=== PATIENT | male | born 1995 | race Two or more races ===

== ENCOUNTER 2024-09-15 15:40 | Emergency (ER) | payer SELFPAY ==
--- NOTE | ~2024-09-15 | CT_ITS ---
EXAMINATION: CT abdomen pelvis w con DATE: 09/15/2024 19:00 INDICATION: abdominal pain TECHNIQUE: Computed tomography (CT) of the abdomen and pelvis was performed with 100 mL Omnipaque-350 intravenous contrast. Automated exposure control and iterative reconstruction technique were employe d. The dose-length product was 571.29 mGy-cm. COMPARISON: None. FINDINGS: Lower thorax: Unremarkable Liver: Normal. Biliary/Gallbladder: Gallbladder is normal. No bile duct dilation. Pancreas: No mass or duct dilation. Spleen: Normal. Adrenals:No mass. Kidneys: No suspicious mass, obstructing stone, or hydronephrosis. GI tract: Mild distal esophageal and gastric wall edema. No small or large bowel dilation. Rounded fa t density adjacent to the mid sigmoid, with a thin hyperattenuating rim and mild surrounding strandin g. Normal appendix. Mesentery/Peritoneum: No ascites, mass, or free air. Retroperitoneum: No mass. Pelvis: Pelvic organs are within normal limits. Small focus of intramural urinary bladder wall fat ne ar a small urachal remnant. Soft Tissues: Small fat-containing, gated appearing inguinal hernia. Bones: No acute osseous finding. IMPRESSION: Mild esophagitis/gastritis. Epiploic appendagitis in the left lower quadrant. Reviewed, dictated and finalized at location K.
[2024-09-15 15:42] VITALS: BP 108/59; PULSE 86; RESP 16; TEMP 36.3; O2SAT 100
--- NOTE | 2024-09-15 15:48 | ECG_ITS ---
Test Date: 2024-09-15 15:54:01 Measurements Intervals [place] Rate: 82 P: 21 [place]: 148 QRS: 33 QRSD: 109 T: 11 QT: 361 QTc: 423 Interpretive Statements SINUS RHYTHM NORMAL ECG No previous ECG available for comparison Electronically Signed On 09-16-2024 09:57:01 CDT by Pop Oscar M.D.
--- NOTE | 2024-09-15 15:49 | ED_ITS ---
HPI - Abdominal Pain General Chief Complaint: Abdominal Pain <Nelly Barker APRN - Last Filed: 09/15/24 16:31> Stated Complaint: abd pain <Nellysona Barker APRN - Last Filed: 09/15/24 16:31> Time Seen by Provider: 09/15/24 15:50 <Nellysona Barker APRN - Last Filed: 09/15/24 16:31> Focused HPI: Patient is a 29-year-old male who presents to the ER with complaints of abdominal pain, nausea, and vomiting that started yesterday. He reports his abdominal pain is generalized but centers around his umbilicus. He denies any diarrhea. Patient reports his pain is a 10/10. He also endorses some urinary symptoms including burning with urination. Patient denies any medical history relevant to this ER visit. GENERAL: Ill-appearing, well-nourished, and in acute distress. HEAD: Normocephalic, atraumatic. CHEST: Clear to auscultation. ?No respiratory distress. HEART: Regular rate and rhythm.? NEURO: ?Alert and oriented x3. Patient screened in triage and initial orders placed.? ?Additional care and disposition to be based upon?diagnostic testing and treatment. <Nelly Barker APRN - Last Filed: 09/15/24 16:31> Review of Systems 2 Review of Systems: All systems reviewed & are unremarkable except as noted in HPI and below <Masha Richmond PA-C - Last Filed: 09/15/24 22:15> PMFSH Past Medical History Medical History: Medical History (Updated 09/15/24 @ 22:10 by Masha Richmond PA-C) No active medical problems <Nelly Barker APRN - Last Filed: 09/15/24 16:31> Exam 2 Narrative: GENERAL: Well-appearing, well-nourished, and in no acute distress. HEAD: Normocephalic, atraumatic. EYES: EOMI. CHEST: Clear to auscultation. No respiratory distress. No wheezes rales or rhonchi HEART: Regular rate and rhythm. No murmur heard. Normal peripheral pulses. ABDOMEN: Soft, nontender, nondistended, normal active bowel sounds. EXTREMITIES: Normal range of motion. No edema. SKIN: Warm, dry. Papular rash present to the left wrist NEURO: No focal deficits. Alert and oriented x3. PSYCH: Normal mood and affect <Masha Richmond PA-C - Last Filed: 09/15/24 22:15> Course Vital Signs Vital signs: Vital Signs Temperature 97.4 F L 09/15/24 15:42 Pulse Rate 86 09/15/24 15:42 Respiratory Rate 16 09/15/24 15:42 Blood Pressure 108/59 L 09/15/24 15:42 Pulse Oximetry 100 09/15/24 15:42 Temperature 97.4 F L 09/15/24 15:42 Pulse Rate 76 09/15/24 21:56 Respiratory Rate 18 09/15/24 21:56 Blood Pressure 121/76 09/15/24 21:56 Pulse Oximetry 99 09/15/24 21:56 Oxygen Delivery Room Air 09/15/24 21:56 <Nelly Barker APRN - Last Filed: 09/15/24 16:31> Vital Signs Temperature 97.4 F L 09/15/24 15:42 Pulse Rate 86 09/15/24 15:42 Respiratory Rate 16 09/15/24 15:42 Blood Pressure 108/59 L 09/15/24 15:42 Pulse Oximetry 100 09/15/24 15:42 Temperature 97.4 F L 09/15/24 15:42 Pulse Rate 76 09/15/24 21:56 Respiratory Rate 18 09/15/24 21:56 Blood Pressure 121/76 09/15/24 21:56 Pulse Oximetry 99 09/15/24 21:56 Oxygen Delivery Room Air 09/15/24 21:56 <Masha Richmond PA-C - Last Filed: 09/15/24 22:15> MDM - Abdominal Pain MDM Narrative Medical decision making narrative: Patient presents to the ER for abdominal pain, additionally endorsing an itchy rash. Patient is afebrile and nontoxic appearing. His vitals are stable. CBC with leukocytosis to 15.7. Metabolic panel without concerning findings. Lactic acid is not elevated. Urine without evidence of infection. CT abdomen pelvis shows findings of epiploic appendagitis. Patient updated on his workup and agrees with plan of care. He is to follow up with PCP. He was given warnings to return to the ER <Masha Richmond PA-C - Last Filed: 09/15/24 22:15> Differential Diagnosis Differential diagnosis: Likely diverticulitis and other (Epiploic appendagitis) <Masha Richmond PA-C - Last Filed: 09/15/24 22:15> Lab Data Attestation: I reviewed the patient's lab results. <Masha Richmond PA-C - Last Filed: 09/15/24 22:15> Result diagrams: 09/15/24 15:56 09/15/24 15:57 <Nelly Barker APRN - Last Filed: 09/15/24 16:31> Labs: Lab Results 09/15/24 09/15/24 09/15/24 Range/Units 15:55 15:56 15:57 WBC 15.7 H (4.5-10.0) K/mm3 RBC 5.75 (4.6-6.20) M/mm3 Hgb 14.3 (14.0-18.0) g/dL Hct 44.9 (42.0-52.0) % MCV 78.1 L (80-100) fl MCH 24.9 L (26-34) pg MCHC 31.8 L (32-36) g/dl RDW 14.6 H (11.5-14.5) % Plt Count 341 (150-375) k/mm3 MPV 9.6 (7.4-10.4) fl Immature Gran % (Auto) 0.4 (0-0.5) % Neut % (Auto) 87.2 H (45.5-73.1) % Lymph % (Auto) 7.3 L (18.3-44.2) % [place] % (Auto) 3.8 (2.6-8.5) % Eos % (Auto) 1.1 (0-4.4) % Baso % (Auto) 0.2 (0.2-1.2) % Lymph # (Auto) 1.15 (0.9-3.2) K/mm3 [place] # (Auto) 0.6 (0.1-0.6) K/mm3 Eos # (Auto) 0.2 (0-0.3) K/mm3 Baso # (Auto) 0.0 (0.0-0.1) K/mm3 Abs Immat Gran (auto) 0.06 H (0.00-0.031) K/mm3 Absolute Neuts (auto) 13.7 H (1.3-6.7) K/mm3 Absolute Nucleated RBC 0.000 (0.0-0.012) K/mm3 Nucleated RBC % 0.0 (0.0-0.2) % PT 13.1 (11.1-14.7) Seconds INR 1.0 APTT 26.7 (22.3-36.8) Seconds Sodium 136 L (137-145) mmol/L Potassium 4.2 (3.4-5.0) mmol/L Chloride 107 (98-107) mmol/L Carbon Dioxide 18 L (22-30) mmol/L Anion Gap 11 (4-12) mmol/L BUN 14 (9-20) mg/dL Creatinine 0.78 (0.7-1.3) mg/dL Estim Creat Clear Calc 136 ml/min Estimated GFR > 60 (59 - ) Glucose 124 H (65-110) mg/dL POC Capillary Glucose 121 H (65-105) mg/dl Lactic Acid 1.3 (0.7-2.0) mmol/L Calcium 9.5 (8.4-10.2) mg/dL Total Bilirubin 0.5 (0.2-1.3) mg/dL AST 40 (17-59) U/L ALT 46 (6-50) U/L Alkaline Phosphatase 70 (38-126) U/L Troponin I < 0.012 (0.000-0.034) ng/mL Total Protein 7.9 (6.3-8.2) g/dL Albumin 4.4 (3.5-5.1) g/dL Lipase 68 (23-300) U/L Urine Color (Yellow) Urine Appearance (Clear) Urine pH (5.0-9.0) Ur Specific [place] (1.001-1.035) Urine Protein (Negative) mg/dL Urine Glucose (UA) (Negative) mg/dL Urine Ketones (Negative) mg/dL Ur Blood (Man) (Negative) Urine Nitrate (Negative) Urine Bilirubin (Negative) Urine Urobilinogen (<2.0) mg/dL Add Ur Microanalysis Leukocyte Esterase Rfl (Negative) NAHID/UL Urine RBC (0-2) /hpf Urine WBC (0-3) /hpf Ur Squamous Epith Cells (Few) /hpf Urine Bacteria /hpf Urine Casts Urine Mucus /lpf 09/15/24 Range/Units 16:26 WBC (4.5-10.0) K/mm3 RBC (4.6-6.20) M/mm3 Hgb (14.0-18.0) g/dL Hct (42.0-52.0) % MCV (80-100) fl MCH (26-34) pg MCHC (32-36) g/dl RDW (11.5-14.5) % Plt Count (150-375) k/mm3 MPV (7.4-10.4) fl Immature Gran % (Auto) (0-0.5) % Neut % (Auto) (45.5-73.1) % Lymph % (Auto) (18.3-44.2) % [place] % (Auto) (2.6-8.5) % Eos % (Auto) (0-4.4) % Baso % (Auto) (0.2-1.2) % Lymph # (Auto) (0.9-3.2) K/mm3 [place] # (Auto) (0.1-0.6) K/mm3 Eos # (Auto) (0-0.3) K/mm3 Baso # (Auto) (0.0-0.1) K/mm3 Abs Immat Gran (auto) (0.00-0.031) K/mm3 Absolute Neuts (auto) (1.3-6.7) K/mm3 Absolute Nucleated RBC (0.0-0.012) K/mm3 Nucleated RBC % (0.0-0.2) % PT (11.1-14.7) Seconds INR APTT (22.3-36.8) Seconds Sodium (137-145) mmol/L Potassium (3.4-5.0) mmol/L Chloride (98-107) mmol/L Carbon Dioxide (22-30) mmol/L Anion Gap (4-12) mmol/L BUN (9-20) mg/dL Creatinine (0.7-1.3) mg/dL Estim Creat Clear Calc ml/min Estimated GFR (59 - ) Glucose (65-110) mg/dL POC Capillary Glucose (65-105) mg/dl Lactic Acid (0.7-2.0) mmol/L Calcium (8.4-10.2) mg/dL Total Bilirubin (0.2-1.3) mg/dL AST (17-59) U/L ALT (6-50) U/L Alkaline Phosphatase (38-126) U/L Troponin I (0.000-0.034) ng/mL Total Protein (6.3-8.2) g/dL Albumin (3.5-5.1) g/dL Lipase (23-300) U/L Urine Color Yellow (Yellow) Urine Appearance Clear (Clear) Urine pH 6.5 (5.0-9.0) Ur Specific [place] 1.031 (1.001-1.035) Urine Protein 1+ H (Negative) mg/dL Urine Glucose (UA) Negative (Negative) mg/dL Urine Ketones Trace H (Negative) mg/dL Ur Blood (Man) Negative (Negative) Urine Nitrate Negative (Negative) Urine Bilirubin Negative (Negative) Urine Urobilinogen 1.0 (<2.0) mg/dL Add Ur Microanalysis Reviewed Leukocyte Esterase Rfl Negative (Negative) NAHID/UL Urine RBC 11-20 H (0-2) /hpf Urine WBC 0-5 (0-3) /hpf Ur Squamous Epith Cells None seen (Few) /hpf Urine Bacteria None seen /hpf Urine Casts 0-2 Urine Mucus Present /lpf <Nelly Barker, [employer] - Last Filed: 09/15/24 16:31> Lab Results 09/15/24 09/15/24 09/15/24 Range/Units 15:55 15:56 15:57 WBC 15.7 H (4.5-10.0) K/mm3 RBC 5.75 (4.6-6.20) M/mm3 Hgb 14.3 (14.0-18.0) g/dL Hct 44.9 (42.0-52.0) % MCV 78.1 L (80-100) fl MCH 24.9 L (26-34) pg MCHC 31.8 L (32-36) g/dl RDW 14.6 H (11.5-14.5) % Plt Count 341 (150-375) k/mm3 MPV 9.6 (7.4-10.4) fl Immature Gran % (Auto) 0.4 (0-0.5) % Neut % (Auto) 87.2 H (45.5-73.1) % Lymph % (Auto) 7.3 L (18.3-44.2) % [place] % (Auto) 3.8 (2.6-8.5) % Eos % (Auto) 1.1 (0-4.4) % Baso % (Auto) 0.2 (0.2-1.2) % Lymph # (Auto) 1.15 (0.9-3.2) K/mm3 [place] # (Auto) 0.6 (0.1-0.6) K/mm3 Eos # (Auto) 0.2 (0-0.3) K/mm3 Baso # (Auto) 0.0 (0.0-0.1) K/mm3 Abs Immat Gran (auto) 0.06 H (0.00-0.031) K/mm3 Absolute Neuts (auto) 13.7 H (1.3-6.7) K/mm3 Absolute Nucleated RBC 0.000 (0.0-0.012) K/mm3 Nucleated RBC % 0.0 (0.0-0.2) % PT 13.1 (11.1-14.7) Seconds INR 1.0 APTT 26.7 (22.3-36.8) Seconds Sodium 136 L (137-145) mmol/L Potassium 4.2 (3.4-5.0) mmol/L Chloride 107 (98-107) mmol/L Carbon Dioxide 18 L (22-30) mmol/L Anion Gap 11 (4-12) mmol/L BUN 14 (9-20) mg/dL Creatinine 0.78 (0.7-1.3) mg/dL Estim Creat Clear Calc 136 ml/min Estimated GFR > 60 (59 - ) Glucose 124 H (65-110) mg/dL POC Capillary Glucose 121 H (65-105) mg/dl Lactic Acid 1.3 (0.7-2.0) mmol/L Calcium 9.5 (8.4-10.2) mg/dL Total Bilirubin 0.5 (0.2-1.3) mg/dL AST 40 (17-59) U/L ALT 46 (6-50) U/L Alkaline Phosphatase 70 (38-126) U/L Troponin I < 0.012 (0.000-0.034) ng/mL Total Protein 7.9 (6.3-8.2) g/dL Albumin 4.4 (3.5-5.1) g/dL Lipase 68 (23-300) U/L Urine Color (Yellow) Urine Appearance (Clear) Urine pH (5.0-9.0) Ur Specific [place] (1.001-1.035) Urine Protein (Negative) mg/dL Urine Glucose (UA) (Negative) mg/dL Urine Ketones (Negative) mg/dL Ur Blood (Man) (Negative) Urine Nitrate (Negative) Urine Bilirubin (Negative) Urine Urobilinogen (<2.0) mg/dL Add Ur Microanalysis Leukocyte Esterase Rfl (Negative) NAHID/UL Urine RBC (0-2) /hpf Urine WBC (0-3) /hpf Ur Squamous Epith Cells (Few) /hpf Urine Bacteria /hpf Urine Casts Urine Mucus /lpf 09/15/24 Range/Units 16:26 WBC (4.5-10.0) K/mm3 RBC (4.6-6.20) M/mm3 Hgb (14.0-18.0) g/dL Hct (42.0-52.0) % MCV (80-100) fl MCH (26-34) pg MCHC (32-36) g/dl RDW (11.5-14.5) % Plt Count (150-375) k/mm3 MPV (7.4-10.4) fl Immature Gran % (Auto) (0-0.5) % Neut % (Auto) (45.5-73.1) % Lymph % (Auto) (18.3-44.2) % [place] % (Auto) (2.6-8.5) % Eos % (Auto) (0-4.4) % Baso % (Auto) (0.2-1.2) % Lymph # (Auto) (0.9-3.2) K/mm3 [place] # (Auto) (0.1-0.6) K/mm3 Eos # (Auto) (0-0.3) K/mm3 Baso # (Auto) (0.0-0.1) K/mm3 Abs Immat Gran (auto) (0.00-0.031) K/mm3 Absolute Neuts (auto) (1.3-6.7) K/mm3 Absolute Nucleated RBC (0.0-0.012) K/mm3 Nucleated RBC % (0.0-0.2) % PT (11.1-14.7) Seconds INR APTT (22.3-36.8) Seconds Sodium (137-145) mmol/L Potassium (3.4-5.0) mmol/L Chloride (98-107) mmol/L Carbon Dioxide (22-30) mmol/L Anion Gap (4-12) mmol/L BUN (9-20) mg/dL Creatinine (0.7-1.3) mg/dL Estim Creat Clear Calc ml/min Estimated GFR (59 - ) Glucose (65-110) mg/dL POC Capillary Glucose (65-105) mg/dl Lactic Acid (0.7-2.0) mmol/L Calcium (8.4-10.2) mg/dL Total Bilirubin (0.2-1.3) mg/dL AST (17-59) U/L ALT (6-50) U/L Alkaline Phosphatase (38-126) U/L Troponin I (0.000-0.034) ng/mL Total Protein (6.3-8.2) g/dL Albumin (3.5-5.1) g/dL Lipase (23-300) U/L Urine Color Yellow (Yellow) Urine Appearance Clear (Clear) Urine pH 6.5 (5.0-9.0) Ur Specific [place] 1.031 (1.001-1.035) Urine Protein 1+ H (Negative) mg/dL Urine Glucose (UA) Negative (Negative) mg/dL Urine Ketones Trace H (Negative) mg/dL Ur Blood (Man) Negative (Negative) Urine Nitrate Negative (Negative) Urine Bilirubin Negative (Negative) Urine Urobilinogen 1.0 (<2.0) mg/dL Add Ur Microanalysis Reviewed Leukocyte Esterase Rfl Negative (Negative) NAHID/UL Urine RBC 11-20 H (0-2) /hpf Urine WBC 0-5 (0-3) /hpf Ur Squamous Epith Cells None seen (Few) /hpf Urine Bacteria None seen /hpf Urine Casts 0-2 Urine Mucus Present /lpf <Masha Richmond PA-C - Last Filed: 09/15/24 22:15> Imaging Data Radiologist's impression: ITS Impressions Abdomen/Pelvis CT 09/15/24 19:10 IMPRESSION: Mild esophagitis/gastritis. Epiploic appendagitis in the left lower quadrant. <Nelly Barker APRN - Last Filed: 09/15/24 16:31> ITS Impressions Abdomen/Pelvis CT 09/15/24 19:10 IMPRESSION: Mild esophagitis/gastritis. Epiploic appendagitis in the left lower quadrant. <Masha Richmond PA-C - Last Filed: 09/15/24 22:15> Critical Care Time Critical Care Time Critical Care Time: No <Masha Richmond PA-C - Last Filed: 09/15/24 22:15> Discharge Plan Discharge Clinical Impression: Epiploic appendagitis, Rash and nonspecific skin eruption <Nelly Barker APRN - Last Filed: 09/15/24 16:31> Patient Disposition: Home <Nelly Barker APRN - Last Filed: 09/15/24 16:31> Condition: Stable <Nelly Barker APRN - Last Filed: 09/15/24 16:31> Instructions: Acute Rash (ED), Epiploic Appendagitis (ED) <Nelly Barker APRN - Last Filed: 09/15/24 16:31> Additional Instructions: Return to the ER if you experience fever, abdominal pain with nausea and vomiting, you are unable to keep down liquids or solids, or any other symptoms that are concerning to you Ibuprofen or Tylenol as needed for pain You may apply hydrocortisone cream to the rash twice daily as needed Follow up with primary care doctor <Nelly Barker APRN - Last Filed: 09/15/24 16:31> Patient Language: Lithuanian <Nelly Barker APRN - Last Filed: 09/15/24 16:31> Prescriptions: New hydrocortisone 2.5 % cream 1 applic topical BID PRN (Reason: skin irritation) Qty: 20 0RF <Nelly Barker APRN - Last Filed: 09/15/24 16:31> Follow-up/Referrals: Franco Galindo MD [Physician] - UNKNOWN,DOCTOR [Primary Care Provider] - <Nelly Barker, RAZ - Last Filed: 09/15/24 16:31>
[2024-09-15 16:02] LABS: Hematocrit 44.9 % (42.0-52.0); Hemoglobin 14.3 g/dL (14.0-18.0); Immature Granulocyte Percent A 0.4 % (0-0.5); Lymphocytes Absolute Auto 1.15 K/mm3 (0.9-3.2); Mean Corpuscular HGB Conc 31.8 g/dl (32-36); Mean Corpuscular Hemoglobin 24.9 pg (26-34); Mean Corpuscular Volume 78.1 fl (80-100); Nucleated Red Blood Cells Absolute Auto 0.000 K/mm3 (0.0-0.012); Nucleated Red Blood Cells Perc 0.0 % (0.0-0.2); Platelet Count Result 341 k/mm3 (150-375); Red Blood Count 5.75 M/mm3 (4.6-6.20); White Blood Count 15.7 K/mm3 (4.5-10.0)
[2024-09-15 16:14] LABS: Alanine Aminotransferase 46 U/L (6-50); Albumin Level 4.4 g/dL (3.5-5.1); Alkaline Phosphatase 70 U/L (38-126); Anion Gap 11 mmol/L (4-12); Aspartate Amino Transferase 40 U/L (17-59); Bilirubin,Total 0.5 mg/dL (0.2-1.3); Blood Urea Nitrogen 14 mg/dL (9-20); Calcium 9.5 mg/dL (8.4-10.2); Carbon Dioxide 18 mmol/L (22-30); Chloride 107 mmol/L (98-107); Estimated CRCL calculation 136 ml/min; Estimated Glomerular Filt Rate > 60; Glucose 124 mg/dL (65-110); Lipase 68 U/L (23-300); Potassium 4.2 mmol/L (3.4-5.0); Sodium 136 mmol/L (137-145); Total Protein 7.9 g/dL (6.3-8.2)
[2024-09-15 16:15] LABS: INR 1.0; Prothrombin Time 13.1 Seconds (11.1-14.7)
[2024-09-15 16:16] LABS: Partial Thromboplastin Time 26.7 Seconds (22.3-36.8)
[2024-09-15 16:24] LABS: Troponin I < 0.012 ng/mL (0.000-0.034)
[2024-09-15 17:19] LABS: Add Urine Microscopic? YES; Appearance Urine Clear (Clear); Glucose Urine UA Negative (Negative); Leukocyte Esterase Ur Negative LEU/UL (Negative); Need Manual Microscopic Reviewed; Nitrate Urine Negative (Negative); Non Pathogenic Casts 0-2; Specific Grav Ur 1.031 (1.001-1.035)
[2024-09-15 21:56] VITALS: BP 121/76; PULSE 76; RESP 18; O2SAT 99
[2024-09-15] MEDS: KETOROLAC 15 MG/ML VIAL (*BKC) IV PUSH (22:34)
[2024-09-15 22:37] VITALS: BP 123/78; PULSE 65; RESP 14; O2SAT 100
== END 2024-09-15 22:55 | disposition home or self-care (01) ==
LOC: ANHED 22:12
PROVIDERS: Registered Nurse; Emergency Provider Physician Assistant
DX: K63.89 Other specified diseases of intestine (principal); R21 Rash and other nonspecific skin eruption; K29.70 Gastritis, unspecified, without bleeding; K20.90 Esophagitis, unspecified without bleeding
CPT/HCPCS: 36415; 74177; 80053; 81001; 82948; 83605; 83690; 84484; 85025; 85610; 85730; 93005; 96374; 99284; J1885; Q9967